=== PATIENT | female | born 1995 | race Caucasian/White ===

== ENCOUNTER 2021-05-31 20:53 | Emergency (ER) | payer SELFPAY ==
[2021-05-31] MEDS ORDERED: Ketorolac Tromethamine 30 MG/ML VIAL ONE (22:22)
== END 2021-05-31 22:26 | disposition home or self-care (01) ==
LOC: CSHERS 20:53
DX: K04.7 Periapical abscess without sinus (principal); F17.210 Nicotine dependence, cigarettes, uncomplicated
CPT/HCPCS: 96372; 99282; J1885

== ENCOUNTER 2021-06-01 08:39 | Emergency (ER) | payer SELFPAY ==
[2021-06-01 10:29] LABS: Bilirubin Neg (Negative); Blood, Urine 10 (Negative); Clarity Cloudy (Clear); Glucose, Urine (Dipstick) Normal (Negative); Ketone, Urine Negative (Negative); Leukocyte 500 (Negative); Nitrite Negative (Negative); Protein, Urine (Dipstick) 30 mg/dl (Neg-Trace); Urobilinogen Normal mg/dL (Less than 2)
[2021-06-01 10:34] LABS: Pregnancy Test - Urine (BHCG) Negative (Negative); Pregu Control Background? CLEAR/WHITE (CLR/WHITE); Pregu Control Bar Appear? YES (CONTROL BAR)
[2021-06-01 10:40] LABS: #Basophils 0.1 10x3/uL (0.0-0.2); #Eosinphils 0.4 10x3/uL (0.0-0.5); #Monocytes 0.6 10x3/uL (0.0-1.1); %Basophils 0.5 % (0.0-2.0); %Eosinophils 3.3 % (0.0-6.0); %Monocytes 4.7 % (0.0-10.0); Hemoglobin 12.2 g/dL (12.0-15.5); Mean Corpuscular HGB CONC 34.5 g/dL (32.0-36.0); Mean Corpuscular Hemoglobin 31.4 pg (27.0-33.0); Mean Platelet Volume 9.6 fl (7.4-10.4); Platelet Count 233 10x3/uL (150-450); RBC Distribution Width 12.1 % (11.5-14.5); Red Blood Cell (RBC) Count 3.89 10x6/uL (3.90-5.03); White Blood Cell (WBC) Count 12.3 10x3/uL (3.5-10.5)
[2021-06-01 10:41] LABS: Bacteria/HPF 2+ HPF (None Seen); Squamous Epithelial 21-50 HPF (0-3); WBC/HPF 21-50 HPF (0-3)
[2021-06-01 10:56] LABS: ALT (SGPT) 10 U/L (8-55); AST (SGOT) 13 U/L (5-34); Albumin 4.1 g/dL (3.5-5.0); Alkaline Phosphatase 34 U/L (40-110); Anion Gap 13 mmol/L (10-20); BUN (Urea Nitrogen) 9 mg/dL (7.0-18.7); Bilirubin, Total 0.9 mg/dL (0.2-1.2); Calc. Creatinine Clearance 0 mL/min (70-130); Calcium 8.9 mg/dL (7.8-10.44); Carbon Dioxide 22 mmol/L (22-29); Chloride 108 mmol/L (98-107); Globulin 2.8 g/dL (2.4-3.5); Glucose 100 mg/dL (70-105); Potassium 4.6 mmol/L (3.5-5.1); Protein, Total 6.9 g/dL (6.0-8.3); Sodium 138 mmol/L (136-145)
[2021-06-01] MEDS ORDERED: Ibuprofen 200 MG TAB ONE (12:07)
[2021-06-01] MEDS ORDERED: HYDROcodone/Acetaminophen 5/325 mg Tablet ONE (12:07)
== END 2021-06-01 12:19 | disposition home or self-care (01) ==
LOC: CSHERS 08:39
DX: K04.7 Periapical abscess without sinus (principal); N39.0 Urinary tract infection, site not specified; F17.210 Nicotine dependence, cigarettes, uncomplicated; K03.81 Cracked tooth; K02.9 Dental caries, unspecified
CPT/HCPCS: 36415; 80053; 81003; 81015; 81025; 85025; 99283

== ENCOUNTER 2022-06-08 17:03 | Emergency (ER) | payer SELFPAY ==
[2022-06-08] MEDS ORDERED: Dexamethasone 4 MG TAB ONE (18:33)
== END 2022-06-08 19:15 | disposition home or self-care (01) ==
LOC: CSHERS 17:03
DX: J02.9 Acute pharyngitis, unspecified (principal); F17.210 Nicotine dependence, cigarettes, uncomplicated
CPT/HCPCS: 87081; 87430; 99283; J8540

== ENCOUNTER 2022-12-31 19:07 | Emergency (ER) | payer SELFPAY ==
[2022-12-31] MEDS ORDERED: Metoclopramide HCl 10 MG/2 ML VIAL ONE (21:54)
[2022-12-31] MEDS ORDERED: diphenhydrAMINE 50 MG/ML VIAL ONE (21:54)
[2022-12-31] MEDS ORDERED: Ketorolac Tromethamine 30 MG/ML VIAL ONE (21:55)
[2022-12-31] MEDS ORDERED: SUMAtriptan Succinate 6 MG/0.5 ML VIAL ONE (21:55)
== END 2022-12-31 23:40 | disposition home or self-care (01) ==
LOC: CSHERS 19:07
DX: H60.501 Unspecified acute noninfective otitis externa, right ear (principal); G43.909 Migraine, unspecified, not intractable, without status migrainosus
CPT/HCPCS: 96374; 96375; J1200; J1885; J2765; J3030

== ENCOUNTER 2023-10-01 14:46 | Emergency (ER) | payer OTHER, SELFPAY ==
[~2023-10-01 14:46] MED LIST: Iopamidol 370 76% 100 ML VIAL ONE
[2023-10-01 15:47] LABS: #Basophils 0.05 10x3/uL (0.0-0.2); #Eosinphils 0.11 10x3/uL (0.0-0.5); #Monocytes 1.01 10x3/uL (0.0-1.1); #Neutrophils 6.33 10x3/uL (1.5-8.4); %Basophils 0.5 % (0.0-2.0); %Eosinophils 1.1 % (0.0-6.0); %Lymphocytes 23.7 % (18.0-47.0); Hematocrit 34.6 % (34.9-44.5); Hemoglobin 12.4 g/dL (12.0-15.5); Mean Corpuscular HGB CONC 35.8 g/dL (32.0-36.0); Mean Corpuscular Hemoglobin 31.2 pg (27.0-33.0); Mean Corpuscular Volume 87.2 fL (81.6-98.3); Mean Platelet Volume 8.5 fL (7.4-10.4); Platelet Count 347 10x3/uL (150-450); RBC Distribution Width 14.1 % (11.5-14.5); Red Blood Cell (RBC) Count 3.97 10x6/uL (3.90-5.03); White Blood Cell (WBC) Count 10.1 10x3/uL (3.5-10.5)
[2023-10-01 15:54] LABS: ALT (SGPT) 18 U/L (8-55); AST (SGOT) 21 U/L (5-34); Albumin 3.6 g/dL (3.5-5.0); Alkaline Phosphatase 49 U/L (40-110); Anion Gap 16 mmol/L (10-20); BUN (Urea Nitrogen) 13 mg/dL (7.0-18.7); Bilirubin, Total 0.7 mg/dL (0.2-1.2); Calc. Creatinine Clearance 0 mL/min (70-130); Calcium 9.1 mg/dL (7.8-10.44); Carbon Dioxide 20 mmol/L (22-29); Chloride 104 mmol/L (98-107); Estimated GFR 113; Globulin 3.5 g/dL (2.4-3.5); Glucose 98 mg/dL (70-105); Lipase 23 U/L (8-78); Potassium 3.9 mmol/L (3.5-5.1); Protein, Total 7.1 g/dL (6.0-8.3); Sodium 136 mmol/L (136-145)
[2023-10-01 16:00] LABS: Troponin I Less than 0.010 ng/mL (< 0.028)
== END 2023-10-01 17:29 | disposition home or self-care (01) ==
LOC: CSHERS 14:46
DX: R07.89 Other chest pain (principal)
CPT/HCPCS: 36415; 71045; 71275; 80053; 83690; 84484; 85025; 85379; 93005

== ENCOUNTER 2024-01-20 11:04 | Emergency (ER) | payer MEDICAID, SELFPAY | END 2024-01-20 12:10 | disposition home or self-care (01) | LOC: CSHERS 11:04 | DX: K08.89 Other specified disorders of teeth and supporting structures (principal); Z87.39 Personal history of other diseases of the musculoskeletal system and connective tissue; Z90.49 Acquired absence of other specified parts of digestive tract | CPT/HCPCS: 99282 ==

== ENCOUNTER 2024-02-14 14:38 | Emergency (ER) | payer MEDICAID | END 2024-02-14 16:57 | disposition home or self-care (01) | LOC: CSHERS 14:38 | DX: S93.401A Sprain of unspecified ligament of right ankle, initial encounter (principal); W18.2XXA Fall in (into) shower or empty bathtub, initial encounter | CPT/HCPCS: 99283 ==

== ENCOUNTER 2024-06-09 02:18 | Emergency (ER) | payer MEDICAID ==
[2024-06-09] MEDS ORDERED: Acetaminophen 500 MG TAB ONE (03:11)
== END 2024-06-09 03:20 | disposition home or self-care (01) ==
LOC: CSHERS 02:18
DX: K08.89 Other specified disorders of teeth and supporting structures (principal); F17.290 Nicotine dependence, other tobacco product, uncomplicated; W22.8XXA Striking against or struck by other objects, initial encounter; Y99.0 Civilian activity done for income or pay
CPT/HCPCS: 99282

== ENCOUNTER 2024-12-08 19:50 | Emergency (ER) | payer MEDICAID | END 2024-12-08 21:06 | disposition home or self-care (01) | LOC: CSHERS 19:50 | DX: M25.562 Pain in left knee (principal); G89.29 Other chronic pain; F17.290 Nicotine dependence, other tobacco product, uncomplicated | CPT/HCPCS: 99283 ==